=== PATIENT | male | born 1985 | race Caucasian/White ===

== ENCOUNTER 2023-06-04 10:07 | Day surgery (SDC) | payer BC ==
[2023-06-04] MEDS ORDERED: Oxymetazoline HCl 0.05% (30 ML BOT) ONE (11:30)
[2023-06-04] MEDS ORDERED: fentaNYL 50 mcg/mL 1 mL Vial ONE ×3 (12:33→14:22)
[2023-06-04] MEDS ORDERED: fentaNYL PF 100 MCG/2 ML SYRINGE ONE (12:33)
[2023-06-04] MEDS ORDERED: PROPOFOL 20 ML ONE (12:34)
[2023-06-04] MEDS ORDERED: Famotidine/PF 20 mg/2ml Vial ONE (12:34)
[2023-06-04] MEDS ORDERED: Lidocaine 2% PF 5 ML VIAL ONE (12:35)
[2023-06-04] MEDS ORDERED: Dexamethasone 4 mg/ml Vial ONE (12:40)
[2023-06-04] MEDS ORDERED: Ondansetron PF 4 MG/2 ML Vial ONE (12:40)
[2023-06-04] MEDS ORDERED: Metoclopramide HCl 10 MG (2 mL) VIAL ONE (12:40)
[2023-06-04] MEDS ORDERED: Lidocaine 1% (PF) 30 ML VIAL ONE (12:56)
[2023-06-04] MEDS ORDERED: EPINEPHrine 1 MG/ML VIAL ONE (12:56)
[2023-06-04] MEDS ORDERED: Hydrocodone-Acetamin 15 ML UDCUP ONE ×2 (16:26→16:27)
== END 2023-06-04 16:32 | disposition home or self-care (01) ==
LOC: SDC 10:07
PROVIDERS: ATTEND Specialist
PROC: 09BM4ZZ Excision of Nasal Septum, Percutaneous Endoscopic Approach (ICD-10-PCS; principal; 2023-06-04)
DX: J34.2 Deviated nasal septum (principal); J34.3 Hypertrophy of nasal turbinates; J34.89 Other specified disorders of nose and nasal sinuses; Z79.899 Other long term (current) drug therapy
CPT/HCPCS: J0171; J1100; J2001; J2405; J2704; J2765; J3010; S0028